=== PATIENT | male | born 1985 | race Caucasian/White ===

== ENCOUNTER 2018-06-04 18:58 | Emergency (ER) | payer OTHER ==
[2018-06-04] MEDS ORDERED: oxyCODONE TAB* 5 MG TAB PO ONE (19:37)
[2018-06-04] MEDS ORDERED: Lidocaine 2% JELLY* 10 ML JELLY TOPICAL ONE (19:37)
--- NOTE | 2018-06-04 19:42 | ED ---
GI/ HPI - HPI Summary HPI Summary: The patient is a 32 y/o M presenting to [facility] with a chief complaint of a leaking mathew catheter starting about two hours ago. On May 19, the patient had a vagectomy and urethral lengthening procedure in [place], but had the stitches replaced yesterday after they had fallen out. A catheter was placed , and it has now seemed to move and become more painful, rated 6/10 in severity. He denies hematuria and abd pain. 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 - History of Current Complaint Chief Complaint: EDUrogenitalProblems Time Seen by Provider: 06/04/18 19:31 Stated Complaint: CATHETER ISSUE Hx Obtained From: Patient Onset/Duration: Started Hours Ago - two, Still Present Timing: Lasting Weeks - since surgery in April Severity: Moderate Current Severity: Moderate Pain Intensity: 6 Location of Pain: Other - at surgical site Pain Characteristics: Aching Associated Signs and Symptoms: Negative: Hematuria, Abdominal Pain Aggravating Factor(s): Nothing Alleviating Factor(s): Medication - prsecribed Oxycodone - Allergy/Home Medications Allergies/Adverse Reactions: Allergies Allergy/AdvReac Type Severity Reaction Status Date / Time amoxicillin Allergy Hives Verified 06/04/18 19:18 cefaclor [From [facility]] Allergy Hives Verified 06/04/18 19:18 Home Medications: Home Medications Oxycodone TAB(NF) [Oxycodone HCl 10 MG] 10 mg PO Q6H PRN 06/04/18 [History Confirmed 06/04/18] PMH/Surg Hx/FS Hx/Imm Hx Endocrine/Hematology History: Denies: Hx Diabetes Respiratory History: Denies: Hx Asthma Opthamlomology History: Denies: Hx Legally Blind EENT History: Denies: Hx Deafness - Surgical History Surgery Procedure, Year, and Place: vagectomy and urethral lining, May 2018 , [place] Hx Anesthesia Reactions: No Infectious Disease History: No Infectious Disease History: Denies: Traveled Outside the [place] in Last 30 Days - Family History Known Family History: Negative: Diabetes - Social History Occupation: Employed Full-time Lives: Alone Substance Use Type: Reports: None Review of Systems Negative: Fever Positive: other - leaking mathew possibly displaced. Negative: hematuria All Other Systems Reviewed And Are Negative: Yes Physical Exam - Summary Physical Exam Summary: Appearance: Well-appearing, Well-nourished, lying in bed comfortable Skin: Warm, dry, no obvious rash Eyes: sclera anicteric, no conjunctival pallor ENT: mucous membranes moist Neck: deferred Respiratory: No signs of respiratory distress Cardiovascular: Appears well perfused, pulses are nml Abdomen: deferred Exam: Cather appears to be fairly far out and may be positioned in the urethra Musculoskeletal: Moving all 4 extremities without obvious discomfort Neurological: Awake and alert, mentation is normal, speech is fluent and appropriate Psychiatric: affect is normal, does not appear anxious or depressed Triage Information Reviewed: Yes Vital Signs On Initial Exam: Initial Vitals Temp Pulse Resp BP Pulse Ox 96.8 F 96 16 132/59 98 06/04/18 19:11 06/04/18 19:11 06/04/18 19:11 06/04/18 19:11 06/04/18 19:11 Vital Signs Reviewed: Yes Diagnostics - Vital Signs Vital Signs Temp Pulse Resp BP Pulse Ox 06/04/18 19:11 96.8 F 96 16 132/59 98 - Laboratory Lab Statement: Any lab studies that have been ordered have been reviewed, and results considered in the medical decision making process. Re-Evaluation - Re-Evaluation First Eval Re-Evaluation Time: 21:10 Change: Improved Comment: I spoke with the patient about discharge after mathew is placed correctly. I spoke with him about speaking with his surgeon and returning to ED if necessary. The nurse was able to successfully reposition the catheter, which is now draining normally. 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 He had a vagectomy and urethral lengthening on May 19, but had the stitches replaced yesterday because they had fallen out. There is no hematuria present, but the patient has been in constant pain since initial procedure. Upon physical exam, the catheter appears to be far out and may be positioned in the urethra. In the ED course, the patient was given Oxycodone, and Lidocaine jelly was used to readjust the catheter in place. He is diagnosed with mathew catheter placement, and he will be discharged home with instructions for further care. He is advised to speak with his surgeon concerning the issues today and follow up in the ED if necessary. He agrees with this plan and understands the need for return if symptoms worsen. - Diagnoses Provider Diagnoses: Mathew catheter problem Discharge - Sign-Out/Discharge Documenting (check all that apply): Patient Departure - Patient will be discharged home. - Discharge Plan Condition: Good Disposition: HOME Patient Education Materials: Mathew Catheter Placement and Care (ED) Referrals: [facility] [Outside] Additional Instructions: Contact your surgeon tomorrow to let them know about the difficulties you have encountered. I'm sure they are experienced with these problems and should be able to guide you through it. If you have further problems it can also be helpful to have them contact us so we know exactly what need be done, which could save you a trip back to [place] if we can help manage things here. - Billing Disposition and Condition Condition: GOOD Disposition: Home - Attestation Statements Document Initiated by Kamla: Yes Documenting Scribe: Kaylee Cai Provider For Whom Kamla is Documenting (Include Credential): Dr. Sandip Olvera MD Scribe Attestation: I, negra Becerraed for Dr. Sandip Olvera MD on 06/04/18 at 2122. Scribe Documentation Reviewed: Yes Provider Attestation: The documentation as recorded by the Kaylee garduno accurately reflects the service I personally performed and the decisions made by me, Dr. Sandip Olvera MD Status of Scribalivia Document: Viewed
[2018-06-04] MEDS ORDERED: Lidocaine 2% JELLY* 6 ML JELLY TOPICAL ONE ×2 (19:44→19:51)
[2018-06-04 21:30] VITALS: BP 132/80
== END 2018-06-04 21:32 | disposition home or self-care (01) ==
LOC: ED 18:58
DX: T83.038A Leakage of other urinary catheter, initial encounter (principal); Y84.6 Urinary catheterization as the cause of abnormal reaction of the patient, or of later complication, without mention of misadventure at the time of the procedure; Y92.9 Unspecified place or not applicable
CPT/HCPCS: 51702; 99283; A9270-GY

== ENCOUNTER 2018-06-09 11:49 | Emergency (ER) | payer OTHER ==
[2018-06-09] MEDS ORDERED: Lidocaine 2% JELLY* 6 ML JELLY TOPICAL ONE ×2 (12:16→12:18)
--- NOTE | 2018-06-09 12:16 | ED ---
GI/ HPI - HPI Summary HPI Summary: A 32 y/o male accompanied by a friend presents to the ED c/o his Mathew catheter coming out. As per triage, "surgery a week ago, has Mathew catheter for 3 weeks, "fell out", cant sit". Currently, the patient cannot sit and his Mathew catheter has come out reaching 7/10 in severity. According to the patient, he had surgery done approximately 3 weeks ago in [place], [place]. He stated that he is transgender, and he underwent a procedure for the first step in gender reassignment. On May 19, 2018 he underwent the procedure, then his stitches fell out which led to him going back to [place] and everything was redone, last Wednesday on June 03, 2018. He stated that everything was reconstructed. He noted that the catheter slipped out again which is when he came to [facility] [place] ED. Last time it slipped out, he came to [facility] ED on Wednesday, June 04, 2018. The patient's friend stated that yesterday they drove to [place] and back for follow up. Patient denies abdominal pain. Patient will have catheter for the next 4 weeks. - History of Current Complaint Chief Complaint: EDUrogenitalProblems Time Seen by Provider: 06/09/18 11:59 Stated Complaint: CATHETER FELL OUT Hx Obtained From: Patient Onset/Duration: Started Hours Ago, Still Present Timing: Constant Severity: Moderate Current Severity: Moderate Pain Intensity: 7 Location of Pain: Suprapubic Pain Characteristics: Pressure Associated Signs and Symptoms: Positive: Negative Aggravating Factor(s): Movement Alleviating Factor(s): Nothing - Allergy/Home Medications Allergies/Adverse Reactions: Allergies Allergy/AdvReac Type Severity Reaction Status Date / Time amoxicillin Allergy Hives Verified 06/09/18 11:52 cefaclor [From Ceclor] Allergy Hives Verified 06/09/18 11:52 PMH/Surg Hx/FS Hx/Imm Hx Endocrine/Hematology History: Denies: Hx Diabetes Respiratory History: Denies: Hx Asthma Sensory History: Denies: Hx Legally Blind, Hx Deafness Opthamlomology History: Denies: Hx Legally Blind - Surgical History Surgery Procedure, Year, and Place: vagectomy and urethral lining, May 2018 , [place] Hx Anesthesia Reactions: No Infectious Disease History: No Infectious Disease History: Denies: Traveled Outside the [place] in Last 30 Days - Family History Known Family History: Negative: Diabetes - Social History Alcohol Use: None Substance Use Type: Reports: None Smoking Status (MU): Never Smoked Tobacco Review of Systems Negative: Fever Negative: Abdominal Pain Positive: pain All Other Systems Reviewed And Are Negative: Yes Physical Exam - Summary Physical Exam Summary: Appearance: Well appearing, no pain distress Skin: warm, dry, reflects adequate perfusion Head/face: normal Eyes: EOMI, RAHDA ENT: normal Neck: supple, non-tender Respiratory: CTA, breath sounds present Cardiovascular: RRR, pulses symmetrical Abdomen: non-tender, soft, Musculoskeletal: normal, strength/ROM intact Neuro: normal, sensory motor intact, A&Ox3 Pelvis: mild swelling in pelvic area, blood around the vulva area, mathew cath present. Triage Information Reviewed: Yes Vital Signs On Initial Exam: Initial Vitals Temp Pulse Resp BP Pulse Ox 99.5 F 94 16 123/73 99 06/09/18 11:51 06/09/18 11:51 06/09/18 11:51 06/09/18 11:51 06/09/18 11:51 Vital Signs Reviewed: Yes Diagnostics - Vital Signs Vital Signs Temp Pulse Resp BP Pulse Ox 06/09/18 11:51 99.5 F 94 16 123/73 99 - Laboratory Lab Statement: Any lab studies that have been ordered have been reviewed, and results considered in the medical decision making process. GIGU Course/Dx - Course Course Of Treatment: A 32 y/o male accompanied by a friend presents to the ED c/ o his Mathew catheter coming out. Currently, the patient cannot sit and his Mathew catheter has come out reaching 7/10 in severity. According to the patient , he had surgery done approximately 3 weeks ago in [place], [place]. He stated that he is transgender, and he underwent a procedure for the first step in gender reassignment. On May 19, 2018 he underwent the procedure, then his stitches fell out which led to him going back to [place] and everything was redone, last Wednesday on June 03, 2018. He stated that everything was reconstructed. He noted that the catheter slipped out again which is when he came to [facility]. Last time it slipped out, he came to [facility] ED on Monday, June 04, 2018. The patient's friend stated that yesterday they drove to [place] and back for follow up. Patient denies abdominal pain. Patient will have catheter for the next 4 weeks. Physical examination findings significant for mild swelling in pelvic area, blood around the vulva area. No laboratory scans were done. No hematology screens were done. In the ED course, the patient received Lidocaine 2%. In the ED room, ER MD deflated the balloon, maneuvered the Mathew Catheter and then re-inflated the balloon. Patient will be discharged with a diagnosis of complications of Mathew Catheter. Patient is to follow up with primary care provider and his surgeon in [place], [place] for further evaluation and management as soon as possible. Patient is to return to ED for any new or worsening symptoms. Patient is agreeable with this plan. - Diagnoses Provider Diagnoses: Complication of Mathew catheter Discharge - Sign-Out/Discharge Documenting (check all that apply): Patient Departure - DISCHARGE - Discharge Plan Condition: Stable Disposition: HOME Patient Education Materials: Mathew Catheter Placement and Care (ED), Mathew Catheter Removal (DC) Referrals: Ankit Cook PA [Primary Care Provider] - 3 Days Additional Instructions: FOLLOW UP WITH YOUR PRIMARY CARE PROVIDER IN 2-3 DAYS. FOLLOW UP WITH YOUR SURGEON IN [place], [place] SOON POSSIBLE. RETURN TO ED FOR ANY NEW OR WORSENING SYMPTOMS. - Billing Disposition and Condition Condition: STABLE Disposition: Home - Attestation Statements Document Initiated by Kamla: Yes Documenting Michaelibe: Rolando Duckworth Provider For Whom Kamla is Documenting (Include Credential): Víctor Clayton MD Scribe Attestation: Rolando Vasquez scribed for Víctor Clayton MD on 06/09/18 at 2020. Scribe Documentation Reviewed: Yes Provider Attestation: The documentation as recorded by the Rolando garduno accurately reflects the service I personally performed and the decisions made by , Víctor Clayton MD Status of Scribe Document: Viewed
[2018-06-09 12:46] VITALS: BP 118/66
== END 2018-06-09 12:45 | disposition home or self-care (01) ==
LOC: ED 11:49
DX: T83.028A Displacement of other urinary catheter, initial encounter (principal); Y84.6 Urinary catheterization as the cause of abnormal reaction of the patient, or of later complication, without mention of misadventure at the time of the procedure; Y92.9 Unspecified place or not applicable
CPT/HCPCS: 99281

== ENCOUNTER 2019-10-08 00:46 | Inpatient (IN) | payer OTHER ==
--- NOTE | 2019-10-08 01:15 | ED ---
Psychiatric Complaint - HPI Summary HPI Summary: This pt is a 34 Y/O M presenting to [facility] with a CC of intermittent SI that have occurred since 10/05/2019. He reports that he has developed a plan but no intent in carrying it out. He states that he has been feeling highly emotional since the Sis have been formulated. He states that he is finally processing stuff that has happened over the past couple years but was not willing to open up about it. He states that he has been going through reconstructive surgery throughout the past year and has had 14 surgeries over the year. He denies any aggravating or alleviating factors since the onset. He also denies any fevers, chills, headaches, SOB, CP, N/V, abdominal pains, and HI. He states that he has a PMHx of gender reassignment surgery and previous mental health issues. - History Of Current Complaint Chief Complaint: EDMentalHealth Time Seen by Provider: 10/08/19 01:12 Hx Obtained From: Patient Onset/Duration: Sudden Onset, Lasting Days - 4, Still Present Timing: Constant Severity Initially: Moderate Severity Currently: Moderate Character: Depressed Aggravating Factor(s): Nothing Alleviating Factor(s): Nothing Has Suicidal: Reports: Thoughts, With A Plan. Denies: Demonstrates Gesture Has Homicidal: Denies: Thoughts, With A Plan - Allergies/Home Medications Allergies/Adverse Reactions: Allergies Allergy/AdvReac Type Severity Reaction Status Date / Time amoxicillin Allergy Hives Verified 10/08/19 04:45 cefaclor [From Ceclor] Allergy Hives Verified 10/08/19 04:45 Home Medications: Home Medications Oxybutynin TAB* [Ditropan TAB*] 5 mg PO TID 10/08/19 [History Confirmed 10/08/19 ] Testosterone Cypionate [Depo-Testosterone] 0.25 liq SUBCUT SEE INSTRUCTIONS [History Confirmed 10/08/19] PMH/Surg Hx/FS Hx/Imm Hx Previously Healthy: Yes Endocrine/Hematology History: Denies: Hx Diabetes Respiratory History: Denies: Hx Asthma Sensory History: Denies: Hx Legally Blind, Hx Deafness Opthamlomology History: Denies: Hx Legally Blind - Cancer History Hx Chemotherapy: No Hx Radiation Therapy: No - Surgical History Surgical History: Yes Surgery Procedure, Year, and Place: vagectomy and urethral lining, May 2018 , [place] Hx Anesthesia Reactions: No - Immunization History Immunizations Up to Date: Yes Infectious Disease History: No Infectious Disease History: Denies: Traveled Outside the US in Last 30 Days - Family History Known Family History: Negative: Diabetes - Social History Occupation: Employed Full-time Lives: Alone Alcohol Use: None Hx Substance Use: No Substance Use Type: Reports: None Hx Tobacco Use: No Smoking Status (MU): Never Smoked Tobacco Review of Systems Negative: Fever, Chills Negative: Chest Pain Negative: Shortness Of Breath Negative: Abdominal Pain, Vomiting, Nausea Negative: Headache Psychological: Other - SI Positive: Depressed, Other - NEGATIVE: HI All Other Systems Reviewed And Are Negative: Yes Physical Exam - Summary Physical Exam Summary: Appearance: Well-appearing, Well-nourished, lying in bed comfortable Skin: Warm, dry, no obvious rash Eyes: sclera anicteric, no conjunctival pallor ENT: mucous membranes moist Neck: deferred Respiratory: No signs of respiratory distress Cardiovascular: Appears well perfused, pulses are nml Abdomen: deferred Musculoskeletal: Moving all 4 extremities without obvious discomfort Neurological: Awake and alert, mentation is normal, speech is fluent and appropriate Psychiatric: affect is normal, does not appear anxious or depressed Triage Information Reviewed: Yes Vital Signs On Initial Exam: Initial Vitals Temp Pulse Resp BP Pulse Ox 98.2 F 100 18 138/94 100 10/08/19 00:47 10/08/19 00:47 10/08/19 00:47 10/08/19 00:47 10/08/19 00:47 Vital Signs Reviewed: Yes Procedures - Sedation Patient Received Moderate/Deep Sedation with Procedure: No Diagnostics - Vital Signs Vital Signs Temp Pulse Resp BP Pulse Ox 10/08/19 00:47 98.2 F 100 18 138/94 100 - Laboratory Result Diagrams: 10/08/19 02:30 10/08/19 02:30 Lab Statement: Any lab studies that have been ordered have been reviewed, and results considered in the medical decision making process. Course/Dx - Course Course Of Treatment: This pt is a 34 Y/O M presenting to [facility] with a CC of intermittent SI that have occurred since 10/05/2019. He reports that he has developed a plan but no intent in carrying it out. He states that he has been feeling highly emotional since the SIs have been formulated. He states that he is finally processing stuff that has happened over the past couple years but was not willing to open up about it. He states that he has been going through reconstructive surgery throughout the past year and has had 14 surgeries. His PE found no acute abnormalities. This pt had an abnormal urine lab result, this was most likely due to his chronic in-dwelling catheter. He will be admitted to [facility] for further care with a Dx of depression. This is involuntary. Dr. Canseco, psychology, agreed to admit the pt. - Differential Dx/Clinical Impression Provider Diagnosis: Depression - Physician Notifications Discussed Care Of Patient With: Harvey Canseco Time Discussed With Above Provider: 06:15 Instructed by Provider To: Admit As Inpatient - voluntary Admit/Transition Orders Completed By ED Provider: Yes - Critical Care Time Critical Care Statement: Critical care time is provided exclusive of any time spent performing procedures. Discharge ED - Sign-Out/Discharge Documenting (check all that apply): Patient Departure - admitted - Discharge Plan Condition: Good Disposition: [facility] [place] - Billing Disposition and Condition Condition: GOOD Disposition: Psychiatric Facility [facility] [place] - Attestation Statements Document Initiated by Scribe: Yes Documenting Scribe: Alfonzo Armstrong Provider For Whom Scribe is Documenting (Include Credential): Sandip Olvera MD Scribe Attestation: I, Alfonzo Armstrong, scribed for Sandip Olvera MD on 10/08/19 at 2108. Scribe Documentation Reviewed: Yes Provider Attestation: The documentation as recorded by the Alfonzo garduno accurately reflects the service I personally performed and the decisions made by me, Sandip Olvera MD Status of Scribe Document: Viewed
[2019-10-08 02:38] LABS: ABS Eosinophils 0.2 10^3/ul (0-0.6); ABS Lymphocytes 2.8 10^3/ul (1.0-4.8); ABS Monocytes 1.3 10^3/ul (0-0.8); ABS Neutrophils 7.4 10^3/ul (1.5-7.7); Eosinophil % 1.5 %; Hematocrit 41 % (42-52); Hemoglobin 14.5 g/dL (14.0-18.0); Lymphocyte % 24.2 %; Mean Corpuscular HGB Conc 35 g/dL (31-36); Mean Corpuscular Hemoglobin 31 pg (27-31); Mean Corpuscular Volume 88 fL (80-94); Mean Platelet Volume 8.9 fL (7.4-10.4); Platelet Count 253 10^3/uL (150-450); Red Blood Count 4.71 10^6 /uL (4.18-5.48); Red Cell Distribution Width 12 % (10-15); White Blood Count 11.7 10^3/uL (3.5-10.8)
[2019-10-08 02:47] LABS: Urine Appearance Cloudy; Urine Bilirubin Negative (Negative); Urine Blood 3+ (Negative); Urine Color Yellow; Urine Glucose Negative (Negative); Urine Ketones Negative (Negative); Urine Nitrite Positive (Negative); Urine Protein 2+(100 mg/dL) (Negative); Urine Specific Gravity 1.008 (1.010-1.030); Urine Urobilinogen Negative (Negative)
[2019-10-08 02:50] LABS: Urine Bacteria 1+ (Absent); Urine Red Blood Cell Trace(0-2/hpf) (Absent); Urine Squamous Epithelial Cell Present (Absent); Urine White Blood Cell 3+(>20/hpf) (Absent)
[2019-10-08 02:57] LABS: ALT 17 U/L (7-52); AST 22 U/L (13-39); Albumin 4.5 g/dL (3.2-5.2); Albumin/Globulin Ratio 1.9 (1-3); Alkaline Phosphatase 56 U/L (34-104); Anion Gap 8 mmol/L (2-11); BUN/Creatinine Ratio 15.1 (8-20); Blood Urea Nitrogen 11 mg/dL (6-24); CO2 Carbon Dioxide 22 mmol/L (22-32); Calcium 9.5 mg/dL (8.6-10.3); Chloride 105 mmol/L (101-111); EGFR African American 150.7 (>60); EGFR Non-African American 124.5 (>60); Globulin 2.4 g/dL (2-4); Glucose 110 mg/dL (70-100); Potassium 3.6 mmol/L (3.5-5.0); Sodium 135 mmol/L (135-145); Total Protein 6.9 g/dL (6.4-8.9)
[2019-10-08 03:12] LABS: Urine Benzodiazepine Screen None Detected (None Detect); Urine Opiates Screen None Detected (None Detect)
[2019-10-08 03:20] LABS: Acetaminophen < 15 mcg/mL; Alcohol < 10 mg/dL (<10); Salicylate < 2.50 mg/dL (<30)
[2019-10-08 03:35] LABS: TSH (Thyroid Stimulating Horm) 0.75 mcIU/mL (0.34-5.60)
[2019-10-08 04:16] LABS: HIV 4th Generation Nonreactive (Nonreactive)
[2019-10-08] MEDS ORDERED: Acetaminophen TAB* 325 MG PO PRN (11:00)
[2019-10-08] MEDS ORDERED: Al Hydrox/Mg Hydrox/Simet LIQ* 30 ML UDC PO PRN (11:00)
[2019-10-08] MEDS ORDERED: Testosterone Cypionate (NF) 200 MG/ML VIAL IM SCH (12:00)
[2019-10-08] MEDS: Oxybutynin TAB* 5 MG PO SCH ×2 (16:26→22:42)
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
[2019-10-08] MEDS ORDERED: hydrOXYzine HCL TAB* 25 MG PO PRN (21:35)
[2019-10-08] MEDS: Nicotine Patch Removal NOTE PATCH OFF SCH (21:50)
[2019-10-08] MEDS: traZODone TAB* 50 MG TAB PO SCH (22:42)
[2019-10-09] MEDS: Vitamin THERAPEUTIC TAB PO SCH (10:50)
[2019-10-09] MEDS: Oxybutynin TAB* 5 MG PO SCH ×3 (10:50→21:32)
[2019-10-09] MEDS: Sertraline* 50 MG TAB PO SCH (10:50)
[2019-10-09] MEDS: Nicotine PATCH 14 MG/24 HR* PATCH TRANSDERM SCH (10:51)
--- NOTE | 2019-10-09 17:10 | PN ---
Subjective - Subjective Date of Service: 10/09/19 Service Type: [id number] Hosp care 35 min high complexity Subjective: Patient reports sleeping well last night. He endorses anxiety and denies suicidal ideation. He reports coming to the ED with friends who drove his car due to "being crazy" and endorses paranoid ideation. He endorses chronic SI since early teens and states "I never acted on it before this year." He reports smoking methamphetamine with friends since moving from [place] to [place] last year. He states preference for discharge today. He states he saw a counselor in [place] last year but stopped a couple months ago due to apathy. He states he has been trying to establish primary care at [facility] in [place]. He gives providers authority to call the above and his sister , Catie in [place] at [phone]. Senior Actuarial Analyst phones [facility]. They are not accepting new patients until November. Senior Actuarial Analyst phones Catie. She is very supportive and appreciates being involved. She states that she and her partner, Sadiq, are always willing to have Thalia live with them. She states he has been "hanging out with bad people" since moving to [place]. She was not aware of substance use. Senior Actuarial Analyst encourages her to talk to Thalia to give him the opportunity to divulge. Senior Actuarial Analyst speaks with Thalia after he spoke with Catie. He states he has been wanting to accept his sister's offer for quite some time but has not yet. He states he is looking forward to relocating to [place], especially in light of recent events. He states he went to [facility] for counseling once after a surgery and is willing to be referred there. He states understanding that he remain hospitalized overnight to secure discharge planning and outpatient referrals. Objective - General Observations Appearance: Well Groomed Stature: Thin Posture: Slumped Eye Contact: Avoidant Behavior/Activity: Slowed - Interaction Observations Attitude Towards Examiner: Cooperative, Anxious Stated Mood: Anxious Affect: Full Speech Pattern/Tone: Quiet Volume Thought Process: Coherent, Circumstantial Thought Content: Preoccupation/Ruminations, Depressive, Self-Deprecatory Hallucination Type: Denies Delusion Type: Denies - Cognitive Function Orientation: A&O x 4 Level of Consciousness: Alert Cognition: WNL Estimated Intelligence: Normal Insight: WNL Judgment Within Normal Limits: No Ability to Make Reasonable Decisions: Mildly Impaired - Medication Compliance Cooperative with Inpatient Medication Regimen: Yes - Group Participation Participates in Group Activities: Partial Assessment - Assessment Merits Inpatient Hospitalization: For Immediate Safety, For Stabilization Inpatient DSM-V Dx: F33.1 Clinical Impression: 32yo white, transgender female to male, domiciled, tenuously employed who presented to ED with friends due to suicidal ideation. He has a significant trauma history and one previous suicide attempt. He reports onset of methamphetamine use in the past year. He merits hospitalization for immediate safety and stabilization. Plan - Plan Treatment Plan: Name: THALIA VELÁZQUEZ Birthdate: 1985 [id number] continue acute intensive psychiatric treatment. may decrease to q30min obs. allow staff pass and computer use per RN discretion. continue current medications. discharge to include family and referrals to outpatient treatment. Continued Medication Management: Start Medication Medications: Current Medications Acetaminophen (Tylenol Tab*) 650 mg PO Q4H PRN PRN Reason: PAIN or TEMP > 101 F Al Hydrox/Mg Hydrox/Simethicone (Maalox Plus*) 30 ml PO Q4H PRN PRN Reason: INDIGESTION Hydroxyzine HCl (Atarax Tab*) 25 mg PO Q4H PRN PRN Reason: ANXIETY Multivitamins (Theragran Tab*) 1 tab PO DAILY [facility] Last Admin: 10/09/19 10:50 Dose: 1 tab Nicotine (Nicotine Patch 14 Mg/24 Hr*) 1 patch TRANSDERM DAILY [facility] Last Admin: 10/09/19 10:51 Dose: Not Given Oxybutynin Chloride (Ditropan Tab*) 5 mg PO TID [facility] Last Admin: 10/09/19 15:03 Dose: 5 mg Pharmacy Profile Note (Nicotine Patch Removal Note*) 1 note PATCH OFF 2100 [facility] Last Admin: 10/08/19 21:50 Dose: Not Given Sertraline HCl (Zoloft*) 50 mg PO DAILY [facility] Last Admin: 10/09/19 10:50 Dose: 50 mg Testosterone Cypionate (Testosterone Cypionate (Nf)) 50 mg IM Q14D [facility] Last Admin: 10/08/19 21:31 Dose: Not Given Trazodone HCl (Desyrel Tab*) 50 mg PO BEDTIME [facility] Last Admin: 10/08/19 22:42 Dose: 50 mg - Discharge Plan Discharge Plan: Inpatient Hospitalization
[2019-10-09] MEDS: Nicotine Patch Removal NOTE PATCH OFF SCH (19:49)
[2019-10-09] MEDS: traZODone TAB* 50 MG TAB PO SCH (21:33)
[2019-10-10 08:22] VITALS: BP 103/67
[2019-10-10] MEDS: Oxybutynin TAB* 5 MG PO SCH ×2 (09:07→12:58)
[2019-10-10] MEDS: Sertraline* 50 MG TAB PO SCH (09:07)
[2019-10-10] MEDS: Nicotine PATCH 14 MG/24 HR* PATCH TRANSDERM SCH (09:07)
[2019-10-10] MEDS: Vitamin THERAPEUTIC TAB PO SCH (09:07)
== END 2019-10-10 14:40 | disposition home or self-care (01) | DRG 751 ==
LOC: ED 00:46 → BSU 06:05
PROVIDERS: ADMIT Psychiatry & Neurology Psychiatry; ATTEND Psychiatry & Neurology Psychiatry
DX: F33.1 Major depressive disorder, recurrent, moderate (principal); R45.851 Suicidal ideations; F43.10 Post-traumatic stress disorder, unspecified; F15.10 Other stimulant abuse, uncomplicated; F41.9 Anxiety disorder, unspecified; Z81.8 Family history of other mental and behavioral disorders; Z79.890 Hormone replacement therapy; Z79.899 Other long term (current) drug therapy
CPT/HCPCS: 36415; 80053; 80307; 80320; 80329; 81003; 81015; 84443; 85025; 87077; 87086; 87186; 87389; 99222; 99233; 99284; A9270-GY; G0480; J1071

== ENCOUNTER 2023-09-01 13:21 | Inpatient (IN) ==
[2023-09-01 15:17] LABS: Urine Appearance Turbid; Urine Bilirubin Negative (Negative); Urine Blood Trace (Negative); Urine Color Yellow; Urine Glucose 3+ (>=300 mg/dL) (Negative); Urine Ketones Trace (Negative); Urine Nitrite Negative (Negative); Urine Protein Trace (Negative); Urine Specific Gravity 1.035 (1.002-1.030); Urine Urobilinogen Negative (Negative); Urine pH 5.5 (5.0-8.0)
[2023-09-01 15:51] LABS: Urine Benzodiazepine Screen None Detected (None Detect); Urine Cannabinoids Screen None Detected (None Detect); Urine Opiates Screen None Detected (None Detect)
[2023-09-01 15:57] LABS: Urine Bacteria Absent /HPF (Absent); Urine Red Blood Cell 3+(>10/hpf) /HPF (0-Trace); Urine Squamous Epithelial Cell Present /HPF (Absent); Urine White Blood Cell 2+(11-20/hpf) /HPF (0-Trace)
[2023-09-01] MEDS: AZELASTINE 0.1% BOTH NARES SCH (21:07)
[2023-09-02] MEDS: Vitamin THERAPEUTIC TAB PO SCH (08:42)
[2023-09-02] MEDS: NF: Cariprazine 3 mg CAP (NF) PO SCH (08:44)
[2023-09-02] MEDS: Nicotine GUM 4MG FRUIT FLAVOR PO PRN (09:55)
[2023-09-02] MEDS: CMCS: Testosterone GEL 1.62% 40.5 MG/2.5 GM GEL (NF) TOPICAL SCH (12:37)
[2023-09-02] MEDS: Nicotine PATCH 21 MG/24 HR PATCH TRANSDERM SCH (12:44)
[2023-09-02] MEDS: PTO: Cariprazine 1.5 mg CAP (NF) PO SCH (15:25)
[2023-09-03 08:54] VITALS: BP 105/66
[2023-09-03] MEDS ORDERED: PTO: Cariprazine 1.5 mg CAP (NF) PO SCH (09:00)
== END 2023-09-03 14:15 | disposition home or self-care (01) | DRG 751 ==
LOC: ED 13:21 → EDHOLD 16:51 → BSU 17:57
PROVIDERS: ADMIT Student in an Organized Health Care Education/Training Program; ATTEND Psychiatry & Neurology Psychiatry